=== PATIENT | male | born 1985 | race Caucasian/White ===

== ENCOUNTER 2018-01-29 09:13 | Emergency (ER) | payer OTHER ==
--- NOTE | 2018-01-29 10:05 | EDPHY ---
H & P Time Seen by Provider: 01/29/18 09:15 HPI/ROS: CHIEF COMPLAINT: Right knee and ankle pain HISTORY OF PRESENT ILLNESS: Patient states he was walking out of the [place] last night around 10:00 p.m. When he tripped over a small ramp. He felt like his right leg gave out any crashed to the ground. This is a sidewalk with pavement. He was able to walk last night although did have pain in both the ankle and knee. He denies other injuries. This morning he states it was more painful to walk special with the ankle and that the knee feels"unstable". He denies any numbness or tingling. No wounds. REVIEW OF SYSTEMS: Negative except per HPI. General Appearance: Alert, no distress. Eyes: Pupils equal and round no icterus Respiratory: No respiratory distress Neurological: Awake, alert, no focal deficits. Skin: Warm and dry, no rashes. Musculoskeletal: Neck is supple nontender. Extremities are symmetrical, full range of motion, no edema. Distal functions intact to the right lower extremity. Right ankle tender to palpation lateral malleolus. Mild swelling. Right knee with mild swelling, tenderness to palpation medially. No obvious instability. Psychiatric: Patient is oriented X 3, there is no agitation. Medical/surgical history: Elbow surgeries. Social history: Nonsmoker, denies drugs. Social alcohol. Smoking Status: Never smoked Constitutional: Initial Vital Signs Temperature (C) 36.8 C 01/29/18 09:17 Heart Rate 89 01/29/18 09:17 Respiratory Rate 16 01/29/18 09:17 Blood Pressure 145/99 H 01/29/18 09:17 O2 Sat (%) 94 01/29/18 09:17 O2 Delivery Mode Room Air Allergies/Adverse Reactions: No Known Allergies Allergy (Verified 01/29/18 09:17) Home Medications: Medication Instructions Recorded NO HOME MEDICATIONS 01/23/11 Medical Decision Making - Diagnostics Imaging Results: Imaging Impressions Ankle X-Ray 01/29/18 09:35 Impression: Mild ankle sprain. Knee X-Ray 01/29/18 09:35 Impression: Negative. No acute fracture or effusion.. Negative fracture of right knee, negative fracture right ankle. No acute findings. Imaging: I viewed and interpreted images myself Differential Diagnosis: Patient with mechanical fall last night from standing. Now with right knee and ankle pain. After evaluation no evidence of fracture, dislocation, neuro vascular compromise. Suspect ankle sprain. Likely some internal derangement of knee but no obvious instability. Patient will be placed in a knee immobilizer and an ankle stirrup splint. He will follow up with Orthopedics in 4-5 days for re-evaluation. Discussed home care and follow-up in detail. Stable for discharge. Departure - Departure Disposition: Home, Routine, Self-Care Clinical Impression: Right ankle sprain Knee internal derangement Qualifiers: Laterality: right Qualified Code(s): M23.91 - Unspecified internal derangement of right knee Condition: Good Instructions: Ankle Sprain (ED), Knee Pain (ED), Knee Immobilizer (ED) Referrals: NONE *PRIMARY CARE P,. [Primary Care Provider] - As per Instructions Kingsley Albright MD [Medical Doctor] - As per Instructions
[2018-01-29 10:24] VITALS: BP 135/92
== END 2018-01-29 10:16 | disposition home or self-care (01) ==
LOC: CED 09:13
DX: S93.401A Sprain of unspecified ligament of right ankle, initial encounter (principal); M23.91 Unspecified internal derangement of right knee; W18.09XA Striking against other object with subsequent fall, initial encounter; Y92.480 Sidewalk as the place of occurrence of the external cause; Y93.01 Activity, walking, marching and hiking
CPT/HCPCS: 73564-PO; 73610-PO; L1830; L4350